=== PATIENT | female | born 1970 | race Caucasian/White ===

== ENCOUNTER 2024-04-09 08:38 | Outpatient (OUT) | payer BC, SELFPAY ==
--- NOTE | 2024-04-09 09:00 | CA_ITS ---
Patient Name: SALVATORE WOODRUFF MR#: [id number] : 1970 Exam Date: 04/09/2024 Ordering Doctor: LORE LANGLEY CNP ECHOCARDIOGRAM REPORT PROCEDURE: CA ECHO DOPPLER COMPLETE INDICATIONS: Hypertrophic obstructive cardiomyopathy, AICD COMPARISON: None. DESCRIPTION: COMPLETE ECHOCARDIOGRAM Real-time transthoracic echocardiography with 2D, M-mode, spectral and color flow Doppler performed. QUALITY: Technical quality was good. LEFT VENTRICLE: Normal chamber size. There is severe septal hypertrophy, measuring 2.9 cm. The basal septum appears thinned out consistent with prior septal reduction therapy. Systolic function is normal. LV EF: Normal left ventricular ejection fraction, (65-70%). DIASTOLIC: ATRIAL SEPTUM: Visually appears intact. LEFT ATRIUM: Moderate dilatation. RIGHT ATRIUM: Mild dilatation. RIGHT VENTRICLE: Normal chamber size. Normal systolic function. Pacer wire present. TRICUSPID VALVE: Normal mobility and thickness. No stenosis with trivial regurgitation. No evidence of pulmonary hypertension. RVSP 20 mmHg MITRAL VALVE: Normal mobility and thickness. No evidence of mitral valve stenosis. Mild mitral annular calcification. Trivial mitral regurgitation. AORTIC VALVE: Normal trileaflet appearance. No visible sclerosis. Normal leaflet mobility. No evidence of aortic valve stenosis. Trivial aortic regurgitation. AORTIC ROOT: Normal diameter and appearance. Ascending aorta is normal in size. PULMONIC VALVE: Normal thickness and mobility. No stenosis. Trivial regurgitation. PERICARDIUM: No evidence of pericardial effusion. IVC: Collapses with inspirations. IVC is normal in size. PLEURA: CONCLUSION: 1. The left ventricle exhibits severe septal hypertrophy measuring 2.9 cm. The basal septum appears thinned out consistent with prior septal reduction therapy. Systolic function is normal, LVEF is 65 to 70%. 2. Normal right ventricular size and systolic function. 3. No significant valvular abnormalities. 4. Normal right-sided pressures. Adult Echocardiography Procedure Report Left Ventricle LVEDD (3.7 - 5.6 cm): 3.85 cm LVESD (2.2 - 4.0 cm): 2.59 cm LVIVS thickness (0.6 - 1.2 cm): 2.52 cm LVPW thickness (0.5 - 1.0 cm): 0.77 cm e': 0.08 m/s E - e': 13.66 LVOT Max Gradient: 1.65 mm[Hg] LVOT Area (cm2): 0.64 m/s Peak Velocity (LVOT): 0.64 m/s Mean Velocity (LVOT): 0.44 m/s LVOT Diameter 2.01 cm Left Atrium LA Volume Index (2D A2C): 49.45 ml/m2 Left Atrium Systolic Dimension: 3.97 cm Mitral Valve MV E to A Ratio: 1.18 Mitral Valve A-Wave Peak Velocity: 0.89 m/s Mitral Valve E-Wave Peak Velocity: 1.05 m/s Right Ventricle Aorta AO Root Diam: 3.23 cm Ascending Ao Diam: 2.99 cm Aortic Valve AoV Area (Peak Martir): 2.09 cm2, 2.09 cm2 AoV Area (VTI): 2.46 cm2, 2.46 cm2 Peak Velocity(Antegrade Flow): 0.97 m/s Peak Gradient(Antegrade Flow): 3.78 mm[Hg] Mean Velocity(Antegrade Flow): 0.57 m/s Mean Gradient(Antegrade Flow): 1.60 mm[Hg] Velocity Time Integral: 19.79 cm Tricuspid Valve Peak Velocity (Regurgitant Flow): 2.07 m/s Pulmonic Valve Mean Gradient: 2.01 mm[Hg], 2.46 mm[Hg], 1.89 mm[Hg] Mean Velocity: 0.64 m/s, 0.75 m/s, 0.66 m/s Peak Gradient: 4.76 mm[Hg], 4.76 mm[Hg], 4.09 mm[Hg] Right Atrium Right Atrium Systolic Pressure: 45.72 ml, 45.72 ml Dictated by: Kevin Wallace M.D. on 04/09/2024 at 15:40 Approved by: Kevin Wallace M.D. on 04/09/2024 at 15:55
== END 2024-04-09 08:39 | disposition home or self-care (01) ==
LOC: CARD 08:43
PROVIDERS: PCP Nurse Practitioner; Visit Provider Nurse Practitioner Family
DX: I42.1 Obstructive hypertrophic cardiomyopathy (principal)
CPT/HCPCS: 93306

== ENCOUNTER 2024-04-20 12:44 | Outpatient (OUT) | payer BC, SELFPAY ==
[2024-04-20 13:14] LABS: Basophils Absolute Auto 0.1 10^3/uL (0.0-0.1); Basophils Percent Auto 0.6 % (0.2-2.0); Eosinophils Absolute Auto 0.1 10^3/uL (0.0-0.7); Eosinophils Percent Auto 1.4 % (0.9-7.0); Hematocrit 47.5 % (36.0-48.0); Hemoglobin 15.7 g/dL (12.0-16.0); Immature Granulocytes Abs Auto 0.02 10^3/uL (0.00-0.03); Immature Granulocytes Pct Auto 0.3 % (0.0-0.5); Lymphocytes Absolute Auto 1.7 10^3/uL (1.2-3.8); Lymphocytes Percent Auto 21.9 % (20.5-60.0); Mean Corpuscular HGB Conc 33.1 g/dL (29.9-35.2); Mean Corpuscular Hemoglobin 33.5 pg (26.7-34.0); Mean Corpuscular Volume 101.5 fL (81.0-99.0); Mean Platelet Volume 9.1 fL (9.5-13.5); Monocytes Absolute Auto 0.6 10^3/uL (0.3-0.8); Monocytes Percent Auto 7.9 % (1.7-12.0); Neutrophils Absolute Auto 5.2 10^3/uL (1.4-6.5); Neutrophils Percent Auto 67.9 % (43.0-75.0); Platelet Count 268 10^3/uL (150-450); Red Blood Count 4.68 10^6/uL (4.20-5.40); Red Cell Distribution Width 13.3 % (11.0-15.0); White Blood Count 7.7 10^3/uL (4.0-11.0)
[2024-04-20 14:05] LABS: Alanine Aminotransferase 26 U/L (14-59); Albumin Globulin Ratio 1.2; Albumin Level 4.2 g/dL (3.4-5.0); Alkaline Phosphatase 77 U/L (46-116); Anion Gap 13.9; Aspartate Amino Transferase 20 U/L (15-37); BUN Creatinine Ratio 20.8; Bilirubin Total 0.7 mg/dL (0.2-1.0); Calcium 9.3 mg/dL (8.5-10.1); Carbon Dioxide 28.3 mmol/L (21.0-32.0); Chloride 103 mmol/L (98-107); Cholesterol 237 mg/dL (<=200); Estimated GFR (African America >60 (>=60); Estimated GFR (Non-African Ame >60 (>=60); Globulin 3.5 g/dL; Glucose 98 mg/dL (74-106); HDL Cholesterol 60 mg/dL (40-60); Potassium 4.2 mmol/L (3.5-5.1); Sodium 141 mmol/L (136-145); Total Protein 7.7 g/dL (6.4-8.2); Triglycerides 179 mg/dL (<=150); VLDL CHOLESTEROL 35.8 mg/dL
== END 2024-04-20 12:45 | disposition home or self-care (01) ==
LOC: LAB 12:45
PROVIDERS: PCP Nurse Practitioner; Visit Provider Nurse Practitioner
DX: I08.0 Rheumatic disorders of both mitral and aortic valves (principal); I42.1 Obstructive hypertrophic cardiomyopathy; I10 Essential (primary) hypertension
CPT/HCPCS: 36415; 80053; 80061; 85025

== ENCOUNTER 2024-08-03 08:51 | Outpatient (OUT) | payer BC, SELFPAY ==
--- OUTSIDE RECORDS SUMMARY | 2024-08-03 09:06 | XMS_ITS | CCD ---
Author Organization [facility] Care Team Providers Care Administrative Assistant Data Entry Name Role Phone ARMAAN ROBLEDO Admitting Unavailable ARMAAN ROBLEDO Attending PETER Navarro Referring PETER Navarro Primary Care Unavailable Mariana Tubbs Unavailable DR PETER OSBORN Primary Care Unavailable KAREN, NAHEED Attending Unavailable KAREN, NAHEED Consulting Unavailable KAREN, NAHEED Admitting Unavailable KAREN, NAHEED Referring Unavailable REDD, LULU Referring Unavailable KAREN, NAHEED Referring Unavailable KAREN, NAHEED Referring Unavailable SHEREENANNE Attending Unavailable REDD, LULU Referring Unavailable REDD, LULU Referring Unavailable KAREN, NAHEED Referring Unavailable KAREN, NAHEED Referring Unavailable KAREN, NAHEED Referring Unavailable KAREN, NAHEED Referring Unavailable KAREN, NAHEED Referring Unavailable Allergies Allergy Classification Reported Allergen(s) Allergy Type Date of Onset Reaction(s) Facility (1 source) 30700,00; Translations: [18101,00] Propensity to adverse reactions (disorder) 9 [facility] Repository Medications Current Medications Medication Drug Class(es) Dates Sig (Normalized) Sig (Original) Metoprolol (2 sources) beta-Adrenergic Samantha Metoprolol Tartrate Active Tobramycin (1 source) Aminoglycoside Antibacterial Start: 05-07-2022 Tobramycin 0.3 % 1 application into the lower eyelid of affected eye Ophthalmic Twice a day for 5 days Apr, Active Verapamil (2 sources) Calcium Channel Samantha Verapamil HCl Active Problems Active Problems Problem Classification Problem Date Documented Da te Episodic/Chronic Cardiac dysrhythmias (1 source) Tachycardia, unspecified; Translations: [TACHYCARDIA, UNSPECIFIED] Onset: 01-01-2019 Episodic Conduction disorders (8 sources) Encounter for adjustment and management of automatic implantable cardiac defibrillator; Translations: [Presence of automatic (implantable) cardiac defibrillator] Onset: 01-01-2019 Chronic Essential hypertension (2 sources) Essential (primary) hypertension; Translations: [Essential (primary) hypertension] Onset: 03-16-2023 Chronic Heart valve disorders (2 sources) Rheumatic disorders of both mitral and aortic valves; Translations: [Rheumatic disorders of both mitral and aortic valves] Onset: 03-16-2023 Chronic Inflammation; infection of eye (except that caused by tuberculosis or sexually transmitteddisease) (1 source) Hordeolum externum right upper eyelid Episodic Jocelyne-; endo-; and myocarditis; cardiomyopathy (except that caused by tuberculosis or sexually transmitted disease) (9 sources) Hypertrophic obstructive cardiomyopathy; Translations: [Other hypertrophic cardiomyopathy] Onset: 01-01-2019 Chronic Screening and history of mental health and substance abuse codes (1 source) Personal history of nicotine dependence; Translations: [PERSONAL HISTORY OF NICOTINE DEPENDENCE] Onset: 01-01-2019 Episodic Syncope (1 source) Syncope and collapse; Translations: [SYNCOPE AND COLLAPSE] Onset: 01-01-2019 Episodic Past or Other Problems Problem Classification Problem Date Documented Da te Episodic/Chronic Immunizations and screening for infectious disease (1 source) Contact with and (suspected) exposure to other viral communicable diseases Onset: 08-11-2021 Resolved: 08-11-2021 Episodic Results Test Name Value Interpretation Reference Range Facility 36on 04-24-2024 36 Regarding lab result s from 04/20/2024: DAYANA Orozco MA Well let her know her CBC, kidney and liver functions are perfect. Cholesterol levels are too high- Chol 237- needs to be < 200 LDL 142- needs to be < 100 (bad cholesterol) HDL is good though at 60 (good cholesterol) 2 options- 1. She can start a low cholesterol/heart healthy diet and regular exercise 2. She can start a statin- lipitor 40 mg daily-along with diet and exercise. Either way she needs repeat cholesterol and liver function in 2-3 months Thanks. Spoke with patient and she would like to make lifestyle modifications before starting a statin. I mailed her orders for liver/lipid panels to be done in 3 months. She verbalized understanding. Normal [facility] Orders Onlyon 04-23-2024 Orders Only [id number] Barbara Woodruff 1970 F Date Provider Department Center 04/23/[address] [facility] No family history on file Normal [facility] Office Visiton 04-11-2024 Follow-up visit [id number] Barbara Woodruff 1970 F Date Provider Department Center 04/11/2024 ANNE MACIEL CARD [facility] No family history on file Level of Service:26894 [place] OFFICE/OUTPATIENT ESTABLISHED LOW MDM 20 MIN Normal [facility] ECHOCARDIO M/2D COMPLETEon 0 05-28-2022 ECHOCARDIO M/2D COMPLETE Patient: AIMEE WOODRUFF Exam Date: 05/28/2022 : 1970 Gender:F Ordering : NAHEED JONES Admission #: [id number] Family : Order #: [id number] CLICK HERE TO VIEW EXAM ECHOCARDIOGRAM REPORT PROCEDURE: CARDIO PULMONARY ECHOCARDIO M/2D COMP INDICATIONS: Hyperteophic obstructive cardiomyopathy COMPARISON: None. DESCRIPTION: COMPLETE ECHOCARDIOGRAM Real-time transthoracic echocardiography with 2D, M-mode, spectral and color flow Doppler performed. QUALITY: Technical quality was adequate. 61 175# BP 126/72 LEFT VENTRICLE: Normal chamber size. The mid and distal anteroseptal wall is severely thickened (3.0 cm). No left ventricular outflow obstruction. LV EF: Normal left ventricular ejection fraction, (>55%). DIASTOLIC: Grade I diastolic dysfunction. ATRIAL SEPTUM: Visually appears intact. LEFT ATRIUM: Moderate dilatation. RIGHT ATRIUM: Mild dilatation. RIGHT VENTRICLE: Normal chamber size. Pacer wire present. Normal systolic function. TRICUSPID VALVE: Normal mobility and thickness. No stenosis with trivial regurgitation. MITRAL VALVE: Mildly thickened with normal mobility. No evidence of mitral valve stenosis. There is no mitral annular calcification. No mitral regurgitation. AORTIC VALVE: Normal trileaflet appearance. No visible sclerosis. Normal leaflet mobility. No evidence of aortic valve stenosis. Trivial aortic regurgitation. AORTIC ROOT: Normal diameter and appearance. PULMONIC VALVE: Normal thickness and mobility. No stenosis. No regurgitation. PERICARDIUM: No evidence of pericardial effusion. IVC: Collapses with inspirations. IVC is normal in size. PLEURA: CONCLUSION: 1. The left ventricular cavity is normal in size. There is severe hypertrophy of the anterior septum with normal left ventricular systolic function and an ejection fraction of 65 to 70%. No evidence of left ventricular outflow tract obstruction. 2. Mild diastolic dysfunction. 3. Normal right ventricular size and systolic function. Pacemaker wire is seen in the ventricular cavity. 4. Moderate dilatation of the left atrium. 5. No significant valvular dysfunction. 6. No pericardial effusion. 7. Findings are consistent with hypertrophic nonobstructive cardiomyopathy. Adult Echocardiography Procedure Report Left Ventricle Left Atrium Mitral Valve Right Ventricle Aorta Aortic Valve Peak Velocity (Antegrade Flow): 1.17 m/s AoV Area (Peak Martir): 2.58 cm2, 2.58 cm2 Tricuspid Valve Peak Velocity: 0.43 m/s Pulmonic Valve Mean Gradient: 1.69 mm[Hg] Mean Velocity: 0.59 m/s Peak Velocity: 0.99 m/s Peak Gradient: 3.99 mm[Hg] Right Atrium Dictated by: Kevin Wallace M.D. on 05/28/2022 at 15:57 Approved by: Kevin Wallace M.D. on 05/28/2022 at 16:05 Normal [facility] COVID Quick Testingon 2020 Result Negative [facility] Other Cardiovascular Lab Reporton 01-01-2019 Cardiovascular Lab Report [facility] Patient Name: [facility] D MR #: [id number] Department of Physician: Armaan Robledo M.D. Division of Service Date: 01/01/2019 Cardiology Birthdate: 1970 Adult Cardiovascular Room #: [place] [address] Cardiovascular Laboratory Report INDICATION: This is a patient with hypertrophic cardiomyopathy. She has a dual-chamber defibrillator. She has had change outs in the past , due to being in an elective replacement index. She is at elective replacement index now and it was recommended to device replacement. The device was placed on October 25, 2012. It is a Medtronic Protecta, the serial number is [id number]. She brought to the EP suite, sterile prepped and draped, given conscious sedation. She was given vancomycin and cefazolin. After conscious sedation was obtained, local anesthesia provided by lidocaine. Using a plasma blade and Metzenbaum scissors, dissection was taken down to the existing device which was removed. The leads were inspected and were in good condition. The new device was attached and secured. The leads were checked several times to make sure they were secure in the header. The pocket was irrigated with bacitracin and gentamicin. The device was placed in a TYRX pouch. The wound was then closed in 2 running layers of 2-0 Vicryl, running layer 3-0 Vicryl, adhered with Dermabond, Steri-Strips. Sponge, and needle counts were correct. There were no apparent complications. Blood loss was minimal. Sensed P and R waves were 2.4 and 12.3 mV, impedance 494. The atrium 342 and the ventricle, high-voltage impedance 57 and 76. Pacing threshold at 0.4 milliseconds was 1.5 V in the ventricle and 0.5 V in the atrium. These were almost identical to previous. The new device was a Medtronic Evera CW [id number]. ASSESSMENT: 1. Conscious sedation. 2. Removal of existing dual-chamber ICD. 3. Placement of a new dual-chamber ICD for device at elective replacement index. Electronically Signed by: Armaan Robledo M.D. 01/03/2019 01:04 P Armaan Robledo M.D. Date Dict: 01/01/2019/10:15 A/Armaan Robledo M.D. Date Trans: 01/01/2019 12:36 P/mmo [id number] cc: Peter Osborn M.D. [address] [place] [id number] [facility] Vital Signs Date Time Vital Sign Value Performing Clinician Facility 05-07-2022 13:25-0400 Body height 154.94 cm Mariana Tubbs Other [facility] Other 05-07-2022 13:25-0400 Body mass index (BMI) [Ratio] 32.12 kg/m2 Mariana Tubbs Other [facility] Other 05-07-2022 13:25-0400 Body temperature 97.7 [degF] Mariana Tubbs Other [facility] Other 05-07-2022 13:25-0400 Body weight 77.11 kg Mariana Tubbs Other [facility] Other 05-07-2022 13:25-0400 Diastolic blood pressure 75 mm[Hg] Mariana Hahnault Other [facility] Other 05-07-2022 13:25-0400 Respiratory rate 18 /min Mariana Tubbs Other [facility] Other 05-07-2022 13:25-0400 SaO2% (BldA) [Mass fraction] 97 % Mariana Tubbs Other [facility] Other 05-07-2022 13:25-0400 Systolic blood pressure 139 mm[Hg] Mariana Tubbs Other [facility] Other 08-11-2021 15:00-0500 Body height 154.94 cm Mariana Hahnault Other [facility] Other 08-11-2021 15:00-0500 Body mass index (BMI) [Ratio] 33.06 kg/m2 Mariana Hahnault Other [facility] Other 08-11-2021 15:00-0500 Body temperature 97.2 [degF] Mariana Hahnault Other [facility] Other 08-11-2021 15:00-0500 Body weight 79.38 kg Mariana Tubbs Other [facility] Other 08-11-2021 15:00-0500 SaO2% (BldA) [Mass fraction] 96 % Mariana Tubbs Other [facility] Other Encounters Encounter Date Encounter Type Care Provider Facility Start: 07-04-2024 ambulatory [facility] Start: 07-04-2024 Encounter for preprocedural cardiovascular examination [facility] Start: 06-25-2024 ambulatory [facility] Start: 05-24-2024 ambulatory [facility] Start: 04-18-2024 ambulatory [facility] Start: 04-11-2024 End: 04-11-2024 ambulatory ANNE REGAN [facility] Start: 04-03-2024 End: 04-03-2024 ambulatory [facility] Start: 03-16-2024 ambulatory [facility] Start: 03-12-2024 ambulatory LULU RAINEY [facility] Start: 09-27-2023 End: 09-27-2023 ambulatory [facility] Start: 05-28-2022 End: 05-29-[address] PETER OSBORN Facility: Start: 05-07-2022 End: 05-07-2022 ambulatory Mariana Tubbs Other [facility] Other Start: 05-07-2022 Office outpatient vi sit 15 minutes Mraiana Tubbs [facility] [place] Start: 08-11-2021 End: 08-11-2021 ambulatory Mariana Tubbs Other [facility] Other Start: 08-11-2021 Office outpatient vi sit 15 minutes Mariana Tubbs [facility] [place] Start: 01-01-2019 End: 01-02-2019 Patient encounter procedure ARMAAN ROBLEDO Facility:[facility] Payers Date Payer Category Payer Unknown [id number] 1970 Unknown [id number] 1958 [place] [id number] Social History Date Type Detail Facility Unknown if ever smoked [facility] Other Sex Assigned At Sex Assigned At Bir th [facility] Other Progress note 04-23-2024 Note Date & Type Note Facility 04-23-2024 Note Reviewed lab results today CBC, renal and liver function are all normal Lipid levels are elevated- Chol 237, LDL 142, trig 179 and HDL 60 Recommended to start lifestyle modifications- heart healthy/low chol diet and regular exercise Or to start a statin- lipitor 40 mg daily along with heart healthy/low chol diet and regular exercise- either way she needs to repeat labs in 3 months LFT and lipid level to assess for any improvement. Staff to call and D/W pt Anne MANZO [place] [facility] Available 7a-5pm via [employer] Chat Pager [phone] [facility] Progress note 04-11-2024 Note Date & Type Note Facility 04-11-2024 Note Reviewed device inte rrogation and with noted 99.9% RV pacing and A sensing- pt may need to also F/U with Dr Jones- EP for surveillance for concerns of pacemaker medicated cardiomyopathy and possible need to upgrade to FRONT END ASSISTANT-D for ventricular synchronization. Message sent to Dr Jones and Dr Wallace- interventionalist [facility] Progress note 04-11-2024 Note Date & Type Note Facility 04-11-2024 Note Hypertension is unch anged. Continue current medications. Continue verapamil and toprol Blood pressure will be reassessed at the next regular appointment. [facility] Progress note 04-11-2024 Note Date & Type Note Facility 04-11-2024 Note Preserved EF, septum remains essentially unchanged at 2.9 cm and was 3.0 cm in 2021 TTE. Continue toprol and f/U with Dr Wallace in 6 months Repeat TTE in 1 year D/W pt to call office for any DFT of AICD, palpitations, SOB, Chest pain, lightheadedness/dizziness or concerns [facility] Progress note 04-11-2024 Note Date & Type Note Facility 04-11-2024 Note [facility] ESS NOTE HPI: Aimee Woodruff is a 54 y.o. female here for routine F/U HPI 54 year old with past medical history of HCM s/p AICD and HTN. Currently denied chest pain, SOB, Orthopnea, palpitations, lightheadedness/dizziness or syncope. Overall denied any activity limiting symptoms and deneid any ICD discharge or hositalization. Previous HPI per D Marquis MILLINERY COPYIST- HPI: Aimee Woodruff is a 53 y.o. year old with past medical history of HCM s/p AICD and HTN. She states she has been feeling well. Denies chest pain, shortness of breath, orthopnea, palpitations, dizziness, lightheadedness, LE edema, syncope. she had recent device check 09/23/2022 showed normal device function stable thresholds, she is RV paced 99.89% of the time and RA paced 3.5% of the time, atrial sensed-V paced 96.43% of the time last echocardiogram that I have record of is 2013 Device interrogation: 11/02/21: normal functioning device, no episodes, TONY 5.4 years Echo 08/06/14 - Global left ventricular systolic function is normal with wall motion abnormalities (EF 77 %) - Asymmetrical septal left ventricular hypertrophy - Doppler studies suggest normal right sided pressures - Normal right ventricular systolic function - The left atrium is moderately enlarged - The right atrium is mildly enlarged - A pacing wire is seen in the right ventricle - Mild aortic valve regurgitation - Mild mitral regurgitation - The basal inferoseptal segment is akinetic and 1.1cm in thickness. - Cardiac phenotype is consistant with hypertrophic cardiomyopathy 01/01/19 CVL- The new device was a Qlibritronic Evera CW [id number]. ASSESSMENT: 1. Conscious sedation. 2. Removal of existing dual-chamber ICD. 3. Placement of a new dual-chamber ICD for device at elective replacement Review of Systems Constitutional: Negative. Respiratory: Negative. Cardiovascular: Negative. Neurological: Negative. All other systems reviewed and are negative. Visit Vitals BP 110/72 (BP Location: Left arm, Patient Position: Sitting) Pulse 78 Ht 1.549 m (5' 1 ) Wt 82.6 kg (182 lb) SpO2 94% BMI 34.39 kg/m??? BSA 1.89 m??? No Known Allergies Medications: Current Outpatient Medications on File Prior to Visit Medication Sig Dispense Refill metoprolol succinate XL (Toprol-XL) 25 mg 24 hr tablet TAKE 1 TABLET ONCE DAILY ASDIRECTED 90 tablet 3 verapamil SR (Calan-SR) 120 mg ER tablet Take 2 tablets (240 mg) by mouth in the morning and at bedtime. 360 tablet 3 No current facility-administered medications on file prior to visit. Physical Exam: Constitutional: Appearance: Normal appearance. Without apparent distress HENT: Head: Normocephalic and atraumatic. Nose: Nose normal. Mouth/Throat: Mouth: Mucous membranes are moist. Eyes: Extraocular Movements: Extraocular movements intact. Conjunctiva/sclera: Conjunctivae normal. Neck: Vascular: No JVD. Cardiovascular: Rate and Rhythm: Normal rate and regular rhythm. Pulses: Dorsalis pedis pulses are 3 on the right side and 3on the left side. Posterior tibial pulses are 3 on the right side and 3 on the left side. Heart sounds: Normal heart sounds, S1 normal and S2 normal. Pulmonary: Effort: Pulmonary effort is normal. Breath sounds: Normal breath sounds. Abdominal: General: Bowel sounds are normal. Palpations: Abdomen is soft. Musculoskeletal: General: Normal range of motion. Cervical back: Normal range of motion. Right lower leg: No edema. Left lower leg: No edema. Skin: General: Skin is warm and dry. Capillary Refill: Capillary refill takes less than 2 seconds. Neurological: General: No focal deficit present. Mental Status: She is alert and oriented to person, place, and time. Psychiatric: Mood and Affect: Mood normal. Behavior: Behavior normal. Thought Content: Thought content normal. Judgment: Judgment normal. Labs: Last labs reviewed from 2018- script provided for labs- CBC, CMP, Lipid level Last lab values have been reviewed CV Testing: Reviewed TTE and device interrogation with pt . TTE 03/2024- previous Septal HOCM measured 3.0 cm in 2021 and remains essentially unchanged with noted thinning from prior septal ablation Device interrogation 04/03/24- A sensing/DIRECTOR OF ATHLETICS- battery life 2.2 years, device working appropriately, atrial episodes < 0.1%, A- pacing 1.6% and V pacing 99.9% Device interrogation: 11/02/21: normal functioning device, no episodes, TONY 5.4 years Echo 08/06/14 - Global left ventricular systolic function is normal with wall motion abnormalities (EF 77 %) - Asymmetrical septal left ventricular hypertrophy - Doppler studies suggest normal right sided pressures - Normal right ventricular systolic function - The left atrium is moderately enlarged - The right atrium is mildly enlarged - A pacing wire is seen in the right ventricle - Mild aortic valve regu (more content not included)... [facility] Progress note 04-11-2024 Note Date & Type Note Facility 04-11-2024 Note Patient here for 1 y ear follow up HOCM, valve regurgitation, and hypertension. Had routine echo and device interrogation last week. She denies chest pain, SOB, palpitations, and lightheadedness/syncope. Review of Systems All other systems reviewed and are negative. [facility] Evaluation note 05-07-2022 Note Date & Type Note Facility 05-07-2022 Evaluation note Encounter Date Diagnosis Assessment Notes Apr, Hordeolum externum of right upper eyelid (ICD-10 - H00.011) warm compresses to eye for comfort and to help with healing. Use medication as directed. Follow up with primary care provider if symptoms persist or worsen [facility] Other Evaluation note 08-11-2021 Note Date & Type Note Facility 08-11-2021 Evaluation note Encounter Date Diagnosis Assessment Notes Jul, Contact with and (suspected) exposure to other viral communicable diseases (ICD-10 - Z20.828) Today test was performed in office. Results are currently negative. That does not mean that you will not develop COVID or do not currently have a low viral count of COVID. The rapid test works best if symptoms have been over 72 hours and the results can vary if you are asymptomatic There is a higher chance of false negative results to occur if testing is performed too soon. It is recommended that even if results are negative and you have been exposed to someone that has COVID that you follow current CDC recommendations . These can be found at CDC.GOV. Follow up with primary care provider if symptoms persist or do not improve Jul, Other Additional time spent conducting pre-visit phone call, screening for symptoms, instructions on social distancing, application and removal of PPE, and cleaning of examination room, equipment and supplies was preformed. Patient education given for testing methodology and results. Patient care instructions given in writting by [facility] document. [facility] Other History general Narrative - Reported Note Date & Type Note Facility History general Narrative - Reported Type Medical History genetic heart defect Surgical History medtronic (defibrilator & pacem armen) 2012 [facility] Other History general Narrative - Reported Note Date & Type Note Facility History general Narrative - Reported Type Medical History genetic heart defect Surgical History medtronic (defibrilator & pacem armen) 2012 Hospitalization History see above [facility] Other Summary Purpose Family History No Family History Records FoundNo Family History Records FoundNo Family History Records Found Advance Directives No Advanced Directives Records FoundNo Advanced Directives Records FoundNo Advanced Directives Records Found Additional Source Comments INFORMATION SOURCE (unrecogn ized section and content) DATE CREATED AUTHOR 01/05/2019 [facility] DATE CREATED AUTHOR AUTHOR'S ORGANIZ ATION 06/19/2022 [facility] DATE CREATED AUTHOR AUTHOR'S ORGANIZ ATION 07/06/2024 [facility] REASON FOR VISIT (unrecogniz ed section and content) #21 SILVER FOSTER, COUGH, UR I SXS X 7 DAYS, COVID Provider VisitRIGHT EYE IRRITATION FOR RECORDS PERTAINING TO PATIENTS WHO ARE OR HAVE BEEN ENROLLED IN A CHEMICAL DEPENDENCY/SUBSTANCEABUSE PROGRAM, SOME INFORMATION MAY BE OMITTED. This clinical summary was aggregated from multiple sources. Caution should be exercised in using it in the provision of clinical care. This summary normalizes information from multiple sources, and as a consequence, information in this document may materially change the coding, format and clinical context of patient data. In addition, data may be omitted in some cases. CLINICAL DECISIONS SHOULD BE BASED ON THE PRIMARY CLINICAL RECORDS. [employer] [facility]. provides no warranty or guarantee of the accuracy or completeness of information in this document.
[2024-08-03 09:33] LABS: Alanine Aminotransferase 22 U/L (14-59); Albumin Level 3.9 g/dL (3.4-5.0); Alkaline Phosphatase 85 U/L (46-116); Aspartate Amino Transferase 19 U/L (15-37); Bilirubin Direct 0.1 mg/dL (0.0-0.2); Bilirubin Total 0.5 mg/dL (0.2-1.0); Chol HDL Ratio 3.7; Cholesterol 231 mg/dL (<=200); Globulin 3.8 g/dL; HDL Cholesterol 62 mg/dL (40-60); Total Protein 7.7 g/dL (6.4-8.2); Triglycerides 167 mg/dL (<=150); VLDL CHOLESTEROL 33.4 mg/dL
== END 2024-08-03 08:52 | disposition home or self-care (01) ==
LOC: LAB 08:53
PROVIDERS: PCP Nurse Practitioner; Visit Provider Nurse Practitioner
DX: E78.00 Pure hypercholesterolemia, unspecified (principal)
CPT/HCPCS: 36415; 80061; 80076

== ENCOUNTER 2024-11-15 10:01 | Outpatient (OUT) | payer BC, SELFPAY ==
--- OUTSIDE RECORDS SUMMARY | 2024-11-15 10:15 | XMS_ITS | CCD ---
Author Organization [facility] ion Partnership [facility] Care Team Providers Care Cross Roller Name Role Phone ARMAAN ROBLEDO Admitting Unavailable ARMAAN ROBLEDO Attending PETER Navarro Referring PETER Navarro Primary Care Unavailable Mariana Tubbs Unavailable DR PETER OSBORN Primary Care Unavailable KAREN, NAHEED Attending Unavailable KAREN, NAHEED Consulting Unavailable KAREN, NAHEED Admitting Unavailable KAREN, NAHEED Referring Unavailable KAREN, NAHEED Referring Unavailable KAREN, NAHEED Referring Unavailable REDD, LULU Referring Unavailable KAREN, NAHEED Referring Unavailable KAREN, NAHEED Referring Unavailable KAREN, NAHEED Referring Unavailable KAREN, NAHEED Referring Unavailable KAREN, NAHEED Referring Unavailable KAREN, NAHEED Referring Unavailable REDD, LULU Referring Unavailable REDD, LULU Referring Unavailable KAREN, NAHEED Referring Unavailable KAREN, NAHEED Referring Unavailable KAREN, NAHEED Referring Unavailable MOUKARBELMIKE Attending Unavailable SHEREEN, ANNE Attending Unavailable KAREN, NAHEED Referring Unavailable KAREN, NAHEED Referring Unavailable KAREN, NAHEED Referring Unavailable KAREN, NAHEED Referring Unavailable Allergies Allergy Classification Reported Allergen(s) Allergy Type Date of Onset Reaction(s) Facility (1 source) 66930,00; Translations: [77213,00] Propensity to adverse reactions (disorder) 9 [facility] Repository Medications Current Medications Medication Drug Class(es) Dates Sig (Normalized) Sig (Original) 24 hr metoprolol succinate 25 mg extended release oral tablet (3 sources) beta-Adrenergic Samantha Start: 10-26-2024 take 1 tablet by mouth every twenty-four hours Metoprolol Succinate 25 mg tablet extended release 24 hr Active MG PO October 26, 2024 12:00am Metoprolol Tartr ate Active oseltamivir 75 mg oral capsule (1 source) Neuraminidase Inhibitor Start: 10-26-2024 take 1 capsule by mouth twice daily Oseltamivir (Tamiflu) 75 mg capsule Active 75 MG PO Twice daily 10 October 26, 2024 12:00am Tobramycin (1 source) Aminoglycoside Antibacterial Start: 05-07-2022 Tobramycin 0.3 % 1 application into the lower eyelid of affected eye Ophthalmic Twice a day for 5 days Apr, Active verapamil hydrochloride 120 mg extended release oral tablet (3 sources) Calcium Channel Samantha Start: 10-26-2024 take 2 tablets by mouth once daily at bedtime Verapamil 120 mg tablet extended release Active 240 MG PO Daily at bedtime October 26, 2024 12:00am Verapamil HCl Ac tive Problems Problem Classification Problem Date Documented Da te Episodic/Chronic Cardiac dysrhythmias (1 source) Cardiac arrhythmia associated with genetic disorder; Translations: [Cardiac arrhythmia, unspecified] 10-26-2024 Chronic Cardiac dysrhythmias (1 source) Tachycardia, unspecified; Translations: [TACHYCARDIA, UNSPECIFIED] Onset: 01-01-2019 Episodic Conduction disorders (8 sources) Encounter for adjustment and management of automatic implantable cardiac defibrillator; Translations: [Presence of automatic (implantable) cardiac defibrillator] Onset: 01-01-2019 Chronic Disorders of lipid metabolism (2 sources) Mixed hyperlipidemia; Translations: [Mixed hyperlipidemia] Onset: 10-05-2024 Chronic Essential hypertension (3 sources) Essential (primary) hypertension; Translations: [Hypertensive disorder] Onset: 03-16-2023 Chronic Heart valve disorders (2 sources) Rheumatic disorders of both mitral and aortic valves; Translations: [Rheumatic disorders of both mitral and aortic valves] Onset: 03-16-2023 Chronic Immunizations and screening for infectious disease (2 sources) Contact with and (suspected) exposure to other viral communicable diseases; Translations: [Contact with or exposure to other viral diseases] Onset: 08-11-2021 Resolved: 08-11-2021 Episodic Inflammation; infection of eye (except that caused [...] Translations: [SYNCOPE AND COLLAPSE] Onset: 01-01-2019 Episodic Results Test Name Value Interpretation Reference Range Facility Office Visiton 10-05-2024 Follow-up visit [id number] Barbara Woodruff 1970 F Date Provider Department Center 10/05/2024 MIKE RODRIGUEZ CARD [facility] No family history on file Level of Service:72642 [place] OFFICE/OUTPATIENT ESTABLISHED MOD MDM 30 MIN [facility] 36on 08-06-2024 36 Patient called back. She would like to continue to make diet and lifestyle modifications and recheck lipids in another 3 months before starting statin. Order for lipid sent to her in the mail to be done in Oct 2024. [facility] 36 Regarding lab result s from 08/03/2024: DAYANA Orozco MA So her lipid levels remain too high, is she hasn't started lipitor she needs to start Lipitor 40 mg po daily and repeat labs in 3 months please. LM for patient to return my call. [facility] 36on 04-24-2024 36 Regarding lab result s [...] done in 3 months. She verbalized understanding. [facility] Orders Onlyon 04-23-2024 Orders Only [id number] Barbara Woodruff 1970 F Date Provider Department Center 04/23/[address] [facility] [facility] No family history on file Normal [facility] Office Visiton 04-11-2024 Follow-up visit [id number] Barbara Woodruff 1970 F Date Provider Department Center 04/11/2024 BelemSHEREEN ANNE SANDRA [facility] No family history on file Level of Service:15114 [place] OFFICE/OUTPATIENT ESTABLISHED LOW MDM 20 MIN Normal [facility] ECHOCARDIO M/2D COMPLETEon 0 05-28-2022 ECHOCARDIO M/2D COMPLETE Patient: AIMEE WOODRUFF Exam Date: 05/28/2022 : 1970 Gender:F Ordering : NAHEED ESCALONA Admission #: [id number] Family : Order #: [id number] CLICK HERE TO VIEW EXAM ECHOCARDIOGRAM REPORT [...] Gradient: 3.99 mm[Hg] Right Atrium Dictated by: Mike Wallace M.D. on 05/28/2022 at 15:57 Approved by: Mike Wallace M.D. on 05/28/2022 at 16:05 Normal [facility] Mobile RoadieID Quick Testingon 2020 Result Negative [facility] Other Cardiovascular Lab Reporton 01-01-2019 Cardiovascular Lab Report [facility] #: [id number] Department of Physician: Armaan Robledo M.D. Division of Service Date: 01/01/2019 Cardiology Birthdate: 1970 Adult Cardiovascular Room #: [place] [address] Cardiovascular Laboratory Report INDICATION: This is a [...] Medtronic Protecta, the serial number is [id number]. She brought to the EP suite, sterile [...] new device was a Medtronic Evera CW [id number]. ASSESSMENT: 1. Conscious sedation. 2. Removal of existing dual-chamber ICD. 3. Placement of a new dual-chamber ICD for device at elective replacement index. Electronically Signed by: Armaan Robledo M.D. 01/03/2019 01:04 P Armaan Robledo M.D. Date Dict: 01/01/2019/10:15 A/Armaan Robledo M.D. Date Trans: 01/01/2019 12:36 P/nusrato [id number] cc: Peter Osborn M.D. [facility] [address] [place] [id number] Normal [facility] Vital Signs Date Time Vital Sign Value Performing Clinician Facility 10-26-2024 18:24-0500 Body height 157.48 cm [facility] 10-26-2024 18:24-0500 Body mass index (BMI) [Ratio] 29.2 kg/m2 [facility] 10-26-2024 18:24-0500 Body temperature 99.8 [degF] [facility] 10-26-2024 18:24-0500 Body weight 72.57 kg [facility] 10-26-2024 18:24-0500 Diastolic blood pressure 69 mm[Hg] [facility] 10-26-2024 18:24-0500 Heart rate 82 /min [facility] 10-26-2024 18:24-0500 Respiratory rate 18 /min [facility] 10-26-2024 18:24-0500 SaO2% (BldA) [Mass fraction] 93 % [facility] 10-26-2024 18:24-0500 Systolic blood pressure 130 mm[Hg] [facility] 05-07-2022 13:25-0400 Body height 154.94 cm Mariana Tubbs Other [facility] Other 05-07-2022 13:25-0400 Body mass index (BMI) [Ratio] 32.12 kg/m2 Mariana Tubbs Other [facility] Other 05-07-2022 13:25-0400 Body temperature 97.7 [degF] Mariana Tubbs Other [facility] Other 05-07-2022 13:25-0400 Body weight 77.11 kg Mariana Tubbs Other [facility] Other 05-07-2022 13:25-0400 Diastolic blood pressure 75 mm[Hg] Mariana Tubbs Other [facility] Other 05-07-2022 13:25-0400 Respiratory rate 18 /min Mariana Tubbs Other [facility] Other 05-07-2022 13:25-0400 SaO2% (BldA) [Mass fraction] 97 % Mariana Tubbs Other [facility] Other 05-07-2022 13:25-0400 Systolic blood pressure 139 mm[Hg] Mariana Tubbs Other [facility] Other 08-11-2021 15:00-0500 Body height 154.94 cm Mariana Tubbs Other [facility] Other 08-11-2021 15:00-0500 Body mass index (BMI) [Ratio] 33.06 kg/m2 Mariana Tubbs Other [facility] Other 08-11-2021 15:00-0500 Body temperature 97.2 [degF] Mariana Tubbs Other [facility] Other 08-11-2021 15:00-0500 Body weight 79.38 kg Mariana Tubbs Other [facility] Other 08-11-2021 15:00-0500 SaO2% (BldA) [Mass fraction] 96 % Mariana Tubbs Other [facility] Other Encounters Encounter Date Encounter Type Care Provider Facility Start: 10-26-2024 End: 10-26-2024 ambulatory [facility] Work Phone: Start: 10-26-2024 End: 10-26-2024 Patient encounter procedure [facility] [place] Work Phone: Start: 10-24-2024 ambulatory [facility] Start: 10-22-2024 ambulatory [facility] Start: 10-05-2024 End: 10-05-2024 ambulatory [facility] Start: 10-01-2024 ambulatory [facility] Start: 09-03-2024 ambulatory [facility] Start: 08-28-2024 End: 08-28-2024 ambulatory [facility] Start: 08-21-2024 ambulatory [facility] Start: 08-15-2024 ambulatory [facility] Start: 08-03-2024 ambulatory [facility] Start: 07-04-2024 ambulatory [facility] Start: 06-25-2024 ambulatory [facility] Start: 06-25-2024 Encounter for preprocedural cardiovascular examination [facility] Start: 05-24-2024 ambulatory [facility] Start: 04-18-2024 ambulatory [facility] Start: 04-11-2024 End: 04-11-[address] [facility] Start: 04-03-2024 End: 04-03-2024 ambulatory [facility] Start: 03-16-2024 ambulatory [facility] Start: 03-12-2024 ambulatory LULU RAINEY [facility] Start: 05-28-2022 End: 05-29-[address] PETER OSBORN Facility: Start: 05-07-2022 End: 05-07-2022 ambulatory Mariana Tubbs Other [facility] Other Start: 05-07-2022 Office outpatient vi sit 15 minutes Mariana Tubbs [facility] [place] Start: 08-11-2021 End: 08-11-2021 ambulatory Mariana Tubbs Other [facility] Other Start: 08-11-2021 Office outpatient vi sit 15 minutes Mariana Tubbs [facility] [place] Start: 01-01-2019 End: 01-02-2019 Patient encounter procedure ARMAAN ROBLEDO Facility:[facility] Payers Date Payer Category Payer Unknown [id number] 1970 Unknown [id number] 1958 [place] [id number] Social History Date Type Detail Facility Unknown if ever smoked [facility] Other Sex Assigned At Sex Assigned At Bir th [facility] Other Start: 10-26-2024 Tobacco smoking status NHIS Never smoked tobacco (finding) [facility] Start: 10-26-2024 Sex Female (finding) [facility] Start: 1970 Sex Assigned At Female F [facility] Clinical Notes 08-11-2021 to 10-05-2024 Note Date & Type Note Facility 10-05-2024 Note DC Cardiology - [facility] Subjective Aimee Woodruff is a 54 y.o. year old female patient being seen for 6 mo follow up HOCM s/p AICD, hypertension, and hyperlipidemia. Device was routinely interrogated last month. Had labs in Apr and Jul, but continues to decline statin therapy. Due for repeat lipids next month. Denies all cardiac symptoms but has been having temporal headaches. She wonders if it could be from her medications. Patient Active Problem List Diagnosis Fatigue Hypertrophic obstructive cardiomyopathy (CMS/HCC) Implantable cardioverter-defibrillator (ICD) in situ Tachycardia Mitral valve insufficiency and aortic valve insufficiency Essential hypertension No family history on file. JOANNA Yu is seen in follow-up. She is a 54-year-old woman with history of hypertrophic obstructive cardiomyopathy status post alcohol septal ablation in 2008 and ICD placement. Additional medical history includes hypertension. She has hyperlipidemia and has been reluctant to start statin therapy for a long time. Today she reports that she has been doing well. she denies chest pain, shortness of breath, palpitations, dizziness, syncope and leg edema. she has good exercise tolerance. There is no claudication. Review of Systems Neurological: Positive for headaches. Objective Visit Vitals BP 120/80 (BP Location: Left arm, Patient Position: Sitting) Pulse 87 Ht 1.549 m (5' 1 ) Wt 85.7 kg (189 lb) SpO2 95% BMI 35.71 kg/m??? BSA 1.92 m??? Physical Exam Constitutional: Appearance: She is well-developed. She is not ill-appearing. HENT: Head: Normocephalic and atraumatic. Nose: Nose normal. Eyes: General: No scleral icterus. Pupils: Pupils are equal, round, and reactive to light. Neck: Thyroid: No thyromegaly. Vascular: No JVD. Cardiovascular: Rate and Rhythm: Normal rate and regular rhythm. Pulses: Radial pulses are 2+ on the right side and 2+ on the left side. Heart sounds: Normal heart sounds. No murmur heard. No friction rub. No gallop. Pulmonary: Effort: Pulmonary effort is normal. No respiratory distress. Breath sounds: Normal breath sounds. No wheezing or rales. Chest: Chest wall: No tenderness. Abdominal: General: Bowel sounds are normal. There is no distension. Palpations: Abdomen is soft. Tenderness: There is no abdominal tenderness. Musculoskeletal: General: No swelling. Cervical back: Neck supple. Skin: General: Skin is warm and dry. Neurological: General: No focal deficit present. Mental Status: She is alert and oriented to person, place, and time. Psychiatric: Mood and Affect: Mood normal. Behavior: Behavior is cooperative. Judgment: Judgment normal. Allergies No Known Allergies Medications Current Outpatient Medications: metoprolol succinate XL (Toprol-XL) 25 mg 24 hr tablet, TAKE 1 TABLET ONCE DAILY ASDIRECTED, Disp: 90 tablet, Rfl: 3 verapamil SR (Calan-SR) 120 mg ER tablet, TAKE 2 TABLETS IN THE MORNING AND AT BEDTIME, Disp: 360 tablet, Rfl: 3 Recent Labs No visits with results within 6 Month(s) from this visit. Latest known visit with results is: Ancillary Procedure on 09/23/2022 Component Date Value Date Time Interrogation * 09/23/2022 [id number] Implantable Pulse Genera* 09/23/2022 Medtronic Implantable Pulse Genera* 09/23/2022 [id number] Evera MRI XT Implantable Pulse Genera* 09/23/2022 [id number] Type Interrogation Sessi* 09/23/2022 Remote Clinic Name 09/23/2022 [facility] Implantable Pulse Genera* 09/23/2022 Defibrillator Implantable Pulse Genera* 09/23/2022 [id number] Implantable Lead Manufac* 09/23/2022 Medtronic Implantable Lead Model 09/23/2022 [id number] Novus Implantable Lead Serial * 09/23/2022 [id number] Implantable Lead Implant* 09/23/[id number] Implantable Lead Location 09/23/2022 Right Atrium Implantable Lead Manufac* 09/23/2022 Medtronic Implantable Lead Model 09/23/2022 [id number] Sprint Quattro Secure Implantable Lead Serial * 09/23/2022 [id number] Implantable Lead Implant* 09/23/[id number] Implantable Lead Location 09/23/2022 Right Ventricle Jhonathan Setting Mode (NBG * 09/23/2022 DDD Jhonathan Setting Lower Rate* 09/23/2022 60 Jhonathan Setting Maximum Tr* 09/23/2022 130 Jhonathan Setting Maximum Se* 09/23/2022 120 Jhonathan Setting Hysterisis* 09/23/2022 DISABLED Jhonathan Setting ALISA Delay * 09/23/2022 110 Jhonathan Setting PAV Delay * 09/23/2022 120 Jhonathan Setting AT Mode Sw* 09/23/2022 171 Lead Channel Setting Sen* 09/23/2022 Bipolar Lead Channel Setting Sen* 09/23/2022 Right Atrium Lead Channel Setting Sen* 09/23/2022 Ring Lead Channel Setting Sen* 09/23/2022 Right Atrium Lead Channel Setting Sen* 09/23/2022 Tip Lead Channel Setting Sen* 09/23/2022 0.3 Lead Channel Setting Sen* 09/23/2022 Bipolar Lead Channel Setting Sen* 09/23/2022 Right Ventricle Lead Channel Setting Sen* 09/23/2022 Ring Lead Channel Setting Sen* 09/23/2022 Right Ventricle Le (more content not included)... [facility] 04-23-2024 Note Reviewed lab results today CBC, [...] Staff to call and D/W pt Anne Sheeren [facility] Cardiology Available 7a-5pm via [employer] Chat Pager [phone] [facility] 04-11-2024 Note Reviewed device inte rrogation and with noted 99.9% RV pacing and A sensing- pt may need to also F/U with Dr Escalona- EP for surveillance for concerns of pacemaker medicated cardiomyopathy and possible need to upgrade to STRATEGIC SOURCING MANAGER-D for ventricular synchronization. Message sent to Dr Escalona and Dr Wallace- interventionalist [facility] 04-11-2024 Note Hypertension is unch anged. Continue current medications. Continue verapamil and toprol Blood pressure will be reassessed at the next regular appointment. [facility] 04-11-2024 Note Preserved EF, septum remains essentially unchanged at 2.9 cm and was 3.0 cm in 2021 TTE. Continue toprol and f/U with Dr Wallace in 6 months Repeat TTE in 1 year D/W pt to call office for any DFT of AICD, palpitations, SOB, Chest pain, lightheadedness/dizziness or concerns [facility] 04-11-2024 Note Patient here for 1 y ear follow up HOCM, valve regurgitation, and hypertension. Had routine echo and device interrogation last week. She denies chest pain, SOB, palpitations, and lightheadedness/syncope. Review of Systems All other systems reviewed and are negative. [facility] 04-11-2024 Note [facility]TP CARDIOLOGY PROGR ESS NOTE HPI: Aimee Woodruff is a 54 y.o. female here for routine F/U HPI 54 year old with past medical history of HCM s/p AICD and HTN. Currently denied chest pain, SOB, Orthopnea, palpitations, lightheadedness/dizziness or syncope. Overall denied any activity limiting symptoms and deneid any ICD discharge or hositalization. Previous HPI per D Marquis IT RISK AND ASSURANCE SENIOR MANAGER- HPI: Aimee Woodruff is a 53 y.o. [...] echocardiogram that I have record of is 2014 Device interrogation: 11/02/21: normal functioning device, no [...] 01/01/19 CVL- The new device was a Runteq Evera CW [id number]. ASSESSMENT: 1. Conscious sedation. 2. Removal of [...] prior septal ablation Device interrogation 04/03/24- A sensing/LIABILITY ANALYST- battery life 2.2 years, device working appropriately, [...] aortic valve regu (more content not included)... [facility] 05-07-2022 Evaluation note Encounter Date Diagnosis Assessment Notes Apr, Hordeolum externum of right upper eyelid (ICD-10 - H00.011) warm compresses to eye for comfort and to help with healing. Use medication as directed. Follow up with primary care provider if symptoms persist or worsen [facility] Other 11-23-2021 Evaluation note* Encounter Date Diagnosis Assessment Notes Treatment Notes Treatment Clinical Notes Jul, Contact with and (suspected) exposure [...] has COVID that you follow current CDC recommendations. These can be found at CDC.GOV. Follow [...] Patient care instructions given in writting by [facility] Care At Home document. [facility] Other Evaluation note* Diagnosis Onset Date Resolution Status Admit Date Contact with or suspected exposure to severe acute respiratory syndrome noneactive October 6:15pm [facility] Work Phone: History general Narrative - Reported* Type Description Date Medical History genetic heart defect Surgical History medtronic (defibrilator & pacem armen) 2012 [facility] Other History general Narrative - Reported* Type Description Date Medical History genetic heart defect Surgical History medtronic (defibrilator & pacem armen) 2012 Hospitalization History see above [facility] Other Summary Purpose Family History Relationship Condition Age at Onset Recorded Date/T usman father Diabetes mellitus Unknown Advance Directives Advance Directive Response Recorded Date/ Time Advance Directives No October 26, 2024 6:14pm Chief Complaint and Reason for Visit Chief Complaint Admit Date Cough October 26, 2024 6 :15pm Reason for Visit Admit Date Contact with or suspected ex posure to severe acute respiratory syndrome October 26, 2024 6:15pm Additional Source Comments INFORMATION SOURCE (unrecogn ized section and content) DATE CREATED AUTHOR 01/05/2019 [facility] DATE CREATED AUTHOR AUTHOR'S ORGANIZ ATION 06/19/2022 [facility] DATE CREATED AUTHOR AUTHOR'S ORGANIZ ATION 10/26/2024 [facility] REASON FOR VISIT (unrecogniz ed section and content) #21 SILVER FOSTER, COUGH, UR I SXS X 7 DAYS, COVID Provider Visit[facility] Care Teams (unrecognized sec tion and content) Team Status: Active Member Role Status Dates Mercedes Ferrari NP-C Primary Care Provider Active Team Status: Inactive Member Role Status Dates Mercedes Ferrari NP-C Primary Care Provider Active Start: October 26, 2024 End: October 26, 2024 Otilia Alexis APRN Attending Provider Active S tart: October 26, 2024 End: October 26, 2024 Goals (unrecognized section and content) Goals may be documented in a n alternate section FOR RECORDS PERTAINING TO PATIENTS WHO ARE [...] BE BASED ON THE PRIMARY CLINICAL RECORDS. [employer] [facility]. provides no warranty or guarantee of the accuracy or completeness of information in this document.
[2024-11-15 10:52] LABS: Chol HDL Ratio 3.8; Cholesterol 231 mg/dL (<=200); HDL Cholesterol 60 mg/dL (40-60); Triglycerides 165 mg/dL (<=150)
== END 2024-11-15 10:02 | disposition home or self-care (01) ==
LOC: LAB 10:03
PROVIDERS: PCP Nurse Practitioner; Visit Provider Nurse Practitioner
DX: E78.2 Mixed hyperlipidemia (principal)
CPT/HCPCS: 36415; 80061